=== PATIENT | female | born 1970 | race Caucasian/White ===

== ENCOUNTER 2018-02-23 13:51 | Emergency (ER) | payer OTHER ==
[2018-02-23 14:06] VITALS: BP 132/84; PULSE 100; TEMP 98.9; BMI 30.9
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
[2018-02-23] MEDS ORDERED: IBUPROFEN 400 MG TABLET (FP) PO ONE ×2 (14:48→14:54)
== END 2018-02-23 17:08 | disposition home or self-care (01) ==
LOC: JERFT 13:51
DX: M25.511 Pain in right shoulder (principal)
CPT/HCPCS: 73030-TC-RT-FY; 73090-TC-RT-FY; 73110-TC-RT-FY; 73130-TC-RT-FY; 99281-25